=== PATIENT | male | born 1990 | race Two or more races ===

== ENCOUNTER 2019-12-31 16:09 | Emergency (ER) | payer SELFPAY ==
[~2019-12-31] VITALS: Ht 162.6 cm; Wt 72.1 kg
[2019-12-31 17:25] LABS: BASOPHILS % (AUTO) 1 % (0-1); EOSINOPHILS % (AUTO) 4 % (1-7); LYMPHOCYTES % (AUTO) 34 % (22-44); MEAN CORPUSCULAR HEMOGLOBIN 30.7 pg (27.5-34.5); MEAN CORPUSCULAR HGB CONC 33.6 g/dL (33.2-36.2); MEAN PLATELET VOLUME 7.9 fL (7.4-10.4); MONOCYTES % (AUTO) 11 % (2-9); NEUTROPHILS % (AUTO) 50 % (42-75); PLATELET COUNT 194 x10^3/uL (130-400); RED CELL DISTRIBUTION WIDTH 12.8 % (9.4-14.8)
[2019-12-31 17:34] LABS: ALBUMIN 4.3 g/dL (3.4-5.0); CALCIUM 8.7 mg/dL (8.5-10.1)
[2019-12-31 17:41] LABS: ALANINE AMINOTRANSFERASE 21 U/L (12-78); ALKALINE PHOSPHATASE 84 U/L (45-117); ANION GAP 5 mmol/L (5-15); BILIRUBIN,TOTAL 0.5 mg/dL (0.2-1.0); CHLORIDE 106 mmol/L (98-107); CREATININE 0.93 mg/dL (0.7-1.3); TOTAL PROTEIN 8.2 g/dL (6.4-8.2)
[2019-12-31 17:48] LABS: MD NO
[2019-12-31 19:41] VITALS: BP 135/81
--- NOTE | 2019-12-31 19:41 | NUR ---
NASAL COVID SWAB DONE ON PT, VITALS UPDATED. PT STATES NO OTHER NEEDS AT THIS TIME
== END 2019-12-31 20:12 | disposition home or self-care (01) ==
LOC: ED 19:30
DX: U07.1 COVID-19 (principal); R05 Cough; R43.0 Anosmia; R43.2 Parageusia; J31.0 Chronic rhinitis; M79.10 Myalgia, unspecified site; R09.81 Nasal congestion; R06.02 Shortness of breath
CPT/HCPCS: 36415; 71045; 80053; 85025; 87635; 99284